=== PATIENT | female | born 1995 | race Two or more races ===

== ENCOUNTER 2019-04-27 23:19 | Emergency (ER) | payer OTHER ==
[~2019-04-27] VITALS: Ht 165.1 cm; Wt 44.5 kg
== END 2019-04-28 05:59 | disposition home or self-care (01) ==
LOC: ER 23:19
DX: F41.9 Anxiety disorder, unspecified (principal); T40.7X5A Adverse effect of cannabis (derivatives), initial encounter

== ENCOUNTER 2021-08-28 15:35 | Emergency (ER) | payer OTHER ==
[~2021-08-28] VITALS: Ht 162.6 cm; Wt 43.5 kg
== END 2021-08-28 18:06 | disposition home or self-care (01) ==
LOC: ER 15:35
DX: R42 Dizziness and giddiness (principal); F41.9 Anxiety disorder, unspecified

== ENCOUNTER 2022-11-07 02:51 | Emergency (ER) | payer OTHER ==
[~2022-11-07] VITALS: Ht 160 cm; Wt 45.4 kg
== END 2022-11-07 04:09 | disposition home or self-care (01) ==
LOC: ER 02:51
DX: J06.9 Acute upper respiratory infection, unspecified (principal)

== ENCOUNTER 2022-11-11 14:50 | Emergency (ER) | payer OTHER ==
[~2022-11-11] VITALS: Ht 162.6 cm; Wt 44.5 kg
== END 2022-11-11 16:38 | disposition home or self-care (01) ==
LOC: ER 14:50
DX: R05.9 Cough, unspecified (principal); Z20.822 Contact with and (suspected) exposure to COVID-19